=== PATIENT | female | born 1935 | race Caucasian/White ===

== ENCOUNTER → 2016-09-22 | Outpatient (CLI) | payer MEDICARE, OTHER | LOC: RAD 15:14 | PROVIDERS: ATTEND Internal Medicine | DX: C34.11 Malignant neoplasm of upper lobe, right bronchus or lung (principal) | CPT/HCPCS: 71260; 74177; 82565 ==

== ENCOUNTER 2016-10-11 11:47 | Inpatient (IN) | payer MEDICARE, OTHER ==
[2016-10-11] MEDS ORDERED: IPRATROPIUM/ALBUTEROL 0.5-2.5 MG/3 ML AMPUL NEB ONE ×2 (11:52)
[2016-10-11 12:33] LABS: ABSOLUTE BASOPHILS # (AUTO) 0.1 10^3/uL (0.0-0.2); ABSOLUTE EOSINOPHILS # (AUTO) 0.2 10^3/uL (0.0-0.6); ABSOLUTE LYMPHOCYTES (AUTO) 1.4 10^3/uL (0.5-4.7); ABSOLUTE MONOCYTES (AUTO) 0.8 10^3/uL (0.1-1.4); ABSOLUTE NEUT (AUTO) 9.1 10^3/uL (1.7-8.2); BASOPHILS % (AUTO) 0.5 % (0-2); EOSINOPHILS % (AUTO) 1.7 % (0-6); HEMATOCRIT 30.9 % (36.0-47.0); HEMOGLOBIN 10.4 g/dL (12.0-15.5); HGB HCT DIFFERENCE 0.3; LYMPHOCYTES % (AUTO) 11.9 % (13-45); MEAN CORPUSCULAR HEMOGLOBIN 33.2 pg (27.0-33.4); MEAN CORPUSCULAR HGB CONC 33.5 g/dL (32.0-36.0); MEAN CORPUSCULAR VOLUME 99 fl (80-97); MONOCYTES % (AUTO) 6.8 % (3-13); RED BLOOD COUNT 3.12 10^6/uL (3.72-5.28); RED CELL DISTRIBUTION WIDTH 14.1 % (11.5-14.0); SEGMENTED NEUTROPHILS % (AUTO) 79.1 % (42-78); WHITE BLOOD COUNT 11.5 10^3/uL (4.0-10.5)
[2016-10-11 12:56] LABS: ALANINE AMINOTRANSFERASE 33 U/L (9-52); ALKALINE PHOSPHATASE 82 U/L (38-126); ANION GAP 14 (5-19); ASPARTATE AMINO TRANSFERASE 32 U/L (14-36); BILIRUBIN,TOTAL 0.7 mg/dL (0.2-1.3); BLOOD UREA NITROGEN 12 mg/dL (7-20); CALCIUM 9.7 mg/dL (8.4-10.2); CARBON DIOXIDE 23 mmol/L (22-30); CHLORIDE 103 mmol/L (98-107); CREATINE KINASE 159 U/L (30-135); CREATININE RESULT 0.65 mg/dL (0.52-1.25); GLUCOSE 120 mg/dL (75-110); POTASSIUM 4.2 mmol/L (3.6-5.0); SODIUM 140.4 mmol/L (137-145); TOTAL PROTEIN 7.1 g/dL (6.3-8.2)
[2016-10-11 13:03] LABS: VENOUS BLOOD BASE EXCESS -1.6 mmol/L; VENOUS BLOOD HCO3 22.5 mmol/L (20-32); VENOUS BLOOD PCO2 35.5 mmHg (35-63); VENOUS BLOOD PH 7.42 (7.30-7.42)
[2016-10-11 13:08] LABS: CREATINE KINASE MB 1.24 ng/mL (<4.55)
[2016-10-11 13:09] LABS: TROPONIN I < 0.012 ng/mL
--- NOTE | 2016-10-11 13:53 | ER Document Report ---
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 pt noted to be hypoxic, placed on oxygen . ems noted pt 98% on oxygen but breathing hard. pt given duo neb enroute. noted symptoms ongoing for 1 week, pt is a full code TRAVEL OUTSIDE OF THE [place] IN LAST 30 DAYS: No - HPI Onset: Last week Onset/Duration: Persistent, Worse Quality of pain: No pain Severity: Moderate Pain Level: Denies Associated symptoms: Shortness of breath Exacerbated by: Walking Relieved by: Denies Similar symptoms previously: No Recently seen / treated by doctor: No Past Medical History - Social History Smoking Status: Current Every Day Smoker Cigarette use (# per day): No Chew tobacco use (# tins/day): No Smoking Education Provided: No Family History: Reviewed & Not Pertinent - Immunizations Hx Diphtheria, Pertussis, Tetanus Vaccination: No Review of Systems - Review of Systems Notes: REVIEW OF SYSTEMS: CONSTITUTIONAL : Denies fever, chills, or sweats. Denies recent illness. EENT: Denies eye, ear, throat, or mouth pain or symptoms. Denies nasal or sinus congestion or discharge. Denies throat, tongue, or mouth swelling or difficulty swallowing. CARDIOVASCULAR: Denies chest pain. Denies palpitations or racing or irregular heart beat. Denies ankle edema. RESPIRATORY: admits to sob , difficulty breathing , wheezing GASTROINTESTINAL: Denies abdominal pain or distention. Denies nausea, vomiting , or diarrhea. Denies blood in vomitus, stools, or per rectum. Denies black, tarry stools. Denies constipation. GENITOURINARY: Denies difficulty urinating, painful urination, burning, frequency, blood in urine, or discharge. FEMALE GENITOURINARY: Denies vaginal bleeding, heavy or abnormal periods, irregular periods. Denies vaginal discharge or odor. MUSCULOSKELETAL: Denies back or neck pain or stiffness. Denies joint pain or swelling. SKIN: Denies rash, lesions or sores. HEMATOLOGIC : Denies easy bruising or bleeding. LYMPHATIC: Denies swollen, enlarged glands. NEUROLOGICAL: Denies confusion or altered mental status. Denies passing out or loss of consciousness. Denies dizziness or lightheadedness. Denies headache. Denies weakness or paralysis or loss of use of either side. Denies problems with gait or speech. Denies sensory loss, numbness, or tingling. Denies seizures. PSYCHIATRIC: Denies anxiety or stress. Denies depression, suicidal ideation, or homicidal ideation. ALL OTHER SYSTEMS REVIEWED AND NEGATIVE. Dictation was performed using [employer] voice recognition software PHYSICAL EXAMINATION: GENERAL: Well-appearing, well-nourished and in no acute distress. HEAD: Atraumatic, normocephalic. EYES: Pupils equal round and reactive to light, extraocular movements intact, conjunctiva are normal. ENT: Nares patent, oropharynx clear without exudates. Moist mucous membranes. NECK: Normal range of motion, supple without lymphadenopathy LUNGS: Patient noted to have significant respiratory distress, immediately placed on BiPAP HEART: Regular rate and rhythm without murmurs ABDOMEN: Soft, nontender, nondistended abdomen. No guarding, no rebound. No masses appreciated. Female : deferred Musculoskeletal: Normal range of motion, no pitting or edema. No cyanosis. NEUROLOGICAL: Cranial nerves grossly intact. Normal speech, normal gait. Normal sensory, motor exams PSYCH: Normal mood, normal affect. SKIN: Warm, Dry, normal turgor, no rashes or lesions noted. Physical Exam - Vital signs Vitals: Resp Pulse Ox 30 H 100 10/11/16 12:00 10/11/16 12:00 Course - Re-evaluation Re-evalutation: 10/11/16 14:35 Patient has been doing well on BiPAP, she is very poor prognosis, unfortunately they have made her a full code which I think is a poor a decision at this time Patient will be admitted to hospitalist service for further evaluation care - Vital Signs Vital signs: Temp Pulse Resp BP Pulse Ox 98.4 F 103 H 20 105/73 99 10/11/16 14:05 10/11/16 14:05 10/11/16 14:05 10/11/16 14:05 10/11/16 14:05 - Laboratory Result Diagrams: 10/11/16 12:10 10/11/16 12:10 Laboratory results interpreted by me: 10/11/16 10/11/16 12:10 12:10 WBC 11.5 H RBC 3.12 L Hgb 10.4 L Hct 30.9 L MCV 99 H RDW 14.1 H Seg Neutrophils % 79.1 H Lymphocytes % 11.9 L Absolute Neutrophils 9.1 H Glucose 120 H Creatine Kinase 159 H - Diagnostic Test Radiology reviewed: Image reviewed, Reports reviewed Critical Care Note - Critical Care Note Total time excluding time spent on procedures (mins): 31 Comments: 31 Discharge - Discharge Clinical Impression: Non-small cell carcinoma of lung, stage 4 Qualifiers: Laterality: unspecified laterality Qualified Code(s): C34.90 - Malignant neoplasm of unspecified part of unspecified bronchus or lung COPD (chronic obstructive pulmonary disease) Qualifiers: COPD type: unspecified COPD Qualified Code(s): J44.9 - Chronic obstructive pulmonary disease, unspecified Condition: Serious Disposition: ADMITTED INPATIENT Admitting Provider: Hospitalist Unit Admitted: [facility]
[2016-10-11] MEDS ORDERED: NORMAL SALINE 1000 ML 1,000 ML IV ONE (15:30)
[2016-10-11] MEDS ORDERED: ONDANSETRON HCL INJ/PF 4 MG/2 ML SDV IV PRN (16:37)
[2016-10-11] MEDS ORDERED: NORMAL SALINE 1000 ML 1,000 ML IV PRN (16:37)
--- NOTE | 2016-10-11 16:52 | PDOC H&P ---
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 pt noted to be hypoxic, placed on oxygen . ems noted pt 98% on oxygen but breathing hard. pt given duo neb enroute. noted symptoms ongoing for 1 week, pt is a full code Upon evaluation in the ED patient was found to be hypoxemic on BiPAP support She did have wheezes bilaterally Chest x-ray did not show any infiltrate She was subsequently admitted with a diagnosis of acute on chronic respiratory failure, stage IV lung CA, and COPD exacerbation Patient's CODE STATUS is full code Past Medical History Pulmonary Medical History: Reports: Chronic Obstructive Pulmonary Disease (COPD) , Other - CA of the lung stage IV EENT Medical History: Reports: None Neurological Medical History: Reports: None Endocrine Medical History: Reports: None Malignancy Medical History: Reports: Lung Cancer GI Medical History: Reports: None Skin Medical History: Reports: None Psychiatric Medical History: Reports: None Infectious Medical History: Reports: None Past Surgical History Past Surgical History: Reports: None Social History Information Source: Relative - Daughter. Smoking Status: Former Smoker - Quit at age 63 Frequency of Alcohol Use: None Hx Recreational Drug Use: No - Advance Directive Resuscitation Status: Full Code Surrogate healthcare decision maker:: HER SON DAPHNEY MCLEAN Family History Family History: Reviewed & Not Pertinent Parental Family History Reviewed: Yes - dementia Children Family History Reviewed: Yes Sibling(s) Family History Reviewed.: Yes Medication/Allergy Home Medications: Benzonatate [Tessalon Perles 100 mg Capsule] 100 mg PO Q8HP PRN 10/11/16 Ipratropium/Albuterol Sulfate [Duoneb 3 ml Ampul] 3 ml NEB RTQ8 10/11/16 Lorazepam [Ativan 0.5 mg Tablet] 0.5 mg PO Q12HP PRN 10/11/16 Megestrol Acetate 80 mg PO BID 10/11/16 Omeprazole 40 mg PO DAILY 10/11/16 Oxycodone HCl [Oxy-Ir 5 mg Tablet] 5 mg PO Q8HP PRN 10/11/16 Primidone [Mysoline 250 mg Tablet] 250 mg PO TID 10/11/16 Promethazine HCl [Phenergan 25 mg Tablet] 25 mg PO Q6HP PRN 10/11/16 Simvastatin [Zocor 40 mg Tablet] 40 mg PO DAILY 10/11/16 Allergies/Adverse Reactions: No Known Allergies Allergy (Unverified 10/11/16 15:57) Review of Systems ROS unobtainable: Other - On BiPAP support Patient cannot appropriately answer questions Physical Exam Vital Signs: Temp Pulse Resp BP Pulse Ox 98.7 F 103 H 16 112/82 100 10/11/16 15:00 10/11/16 14:05 10/11/16 15:01 10/11/16 15:00 10/11/16 15:01 Intake & Output 10/10/16 10/11/16 10/12/16 00:59 00:59 00:59 Weight 133.356 kg General appearance: PRESENT: mild distress, thin Head exam: PRESENT: atraumatic, normocephalic Eye exam: PRESENT: conjunctiva pink, EOMI, PERRLA. ABSENT: scleral icterus Ear exam: PRESENT: normal external ear exam Neck exam: ABSENT: carotid bruit, JVD, lymphadenopathy, thyromegaly Respiratory exam: PRESENT: clear to auscultation marcial, decreased breath sounds, wheezes - Few bilaterally. ABSENT: rales, rhonchi Cardiovascular exam: PRESENT: RRR. ABSENT: diastolic murmur, rubs, systolic murmur GI/Abdominal exam: PRESENT: normal bowel sounds, soft. ABSENT: distended, guarding, mass, organolmegaly, rebound, tenderness Extremities exam: PRESENT: full ROM. ABSENT: calf tenderness, clubbing, pedal edema Neurological exam: PRESENT: awake, CN II-XII grossly intact Skin exam: PRESENT: dry, intact, warm. ABSENT: cyanosis, rash Results Laboratory Results: 10/11/16 12:10 10/11/16 12:10 10/11/16 10/11/16 10/11/16 12:10 12:10 12:45 WBC 11.5 H RBC 3.12 L Hgb 10.4 L Hct 30.9 L MCV 99 H MCH 33.2 MCHC 33.5 RDW 14.1 H Plt Count 325 Seg Neutrophils % 79.1 H Lymphocytes % 11.9 L Monocytes % 6.8 Eosinophils % 1.7 Basophils % 0.5 Absolute Neutrophils 9.1 H Absolute Lymphocytes 1.4 Absolute Monocytes 0.8 Absolute Eosinophils 0.2 Absolute Basophils 0.1 VBG pH 7.42 VBG pCO2 35.5 VBG HCO3 22.5 VBG Base Excess -1.6 Sodium 140.4 Potassium 4.2 Chloride 103 Carbon Dioxide 23 Anion Gap 14 BUN 12 Creatinine 0.65 Est GFR ( Amer) > 60 Est GFR (Non-Af Amer) > 60 Glucose 120 H Calcium 9.7 Total Bilirubin 0.7 AST 32 ALT 33 Alkaline Phosphatase 82 Total Protein 7.1 Albumin 4.0 10/11/16 10/11/16 12:10 12:10 Creatine Kinase 159 H CK-MB (CK-2) 1.24 Troponin I < 0.012 NT-Pro-B Natriuret Pep 370 EKG Comments: SINUS TACHYCARDIA [PLAA] . PROBABLE LEFT ATRIAL ABNORMALITY [AXR] . BORDERLINE RIGHT AXIS DEVIATION [AMI8] . CONSIDER ANTEROSEPTAL INFARCT Impressions: Chest X-Ray 10/11/16 11:52 IMPRESSION: Right hilar fullness consistent with known adenopathy. No other significant findings. Assessment & Plan - Diagnosis (1) Acute on chronic respiratory failure with hypoxemia Is this a current diagnosis for this admission?: YesPlan: We will treat the patient with nebs and supplemental oxygen steroids Levaquin A CTA of the chest be obtained to exclude pulmonary embolism (2) COPD exacerbation Is this a current diagnosis for this admission?: YesPlan: Treatment as above (3) Non-small cell carcinoma of lung, stage 4 Qualifiers: Laterality: unspecified laterality Qualified Code(s): C34.90 - Malignant neoplasm of unspecified part of unspecified bronchus or lung Is this a current diagnosis for this admission?: YesPlan: Last chemotherapy was a week ago Dr. Hinton will follow the patient in the hospital (4) Full code status Is this a current diagnosis for this admission?: Yes - Time Time Spent: 50 to 70 Minutes
--- NOTE | 2016-10-11 18:26 | EKG REPORT ---
SEVERITY:- ABNORMAL ECG - SINUS TACHYCARDIA PROBABLE LEFT ATRIAL ABNORMALITY BORDERLINE RIGHT AXIS DEVIATION CONSIDER ANTEROSEPTAL INFARCT : Confirmed by: Angel Ramos MD 11-Oct-2016 18:25:14
[2016-10-11] MEDS: LEVOFLOXACIN 500 MG/D5W RTU 500 MG/100 ML RTUPB IV SCH (18:58)
[2016-10-11] MEDS: METHYLPREDNISOLONE INJ 40 MG/1 ML SDV IV SCH (19:01)
[2016-10-11] MEDS: FAMOTIDINE INJ/PF 20 MG/2 ML SDV IV SCH (22:45)
[2016-10-12] MEDS: IPRATROPIUM/ALBUTEROL 0.5-2.5 MG/3 ML AMPUL NEB PRN ×4 (00:26→18:30)
[2016-10-12] MEDS: METHYLPREDNISOLONE INJ 40 MG/1 ML SDV IV SCH ×3 (02:44→19:00)
[2016-10-12] MEDS ORDERED: MORPHINE SULFATE 10 MG/ML INJ IV ONE (05:00)
[2016-10-12] MEDS ORDERED: NORMAL SALINE 1000 ML 1,000 ML IV ONE (05:00)
[2016-10-12 06:46] LABS: ABSOLUTE LYMPHOCYTES (AUTO) 0.7 10^3/uL (0.5-4.7); ABSOLUTE MONOCYTES (AUTO) 0.3 10^3/uL (0.1-1.4); ABSOLUTE NEUT (AUTO) 6.1 10^3/uL (1.7-8.2); BASOPHILS % (AUTO) 0.3 % (0-2); EOSINOPHILS % (AUTO) 0.1 % (0-6); HEMATOCRIT 26.9 % (36.0-47.0); HEMOGLOBIN 9.2 g/dL (12.0-15.5); HGB HCT DIFFERENCE 0.7; LYMPHOCYTES % (AUTO) 10.3 % (13-45); MEAN CORPUSCULAR HEMOGLOBIN 34.3 pg (27.0-33.4); MEAN CORPUSCULAR HGB CONC 34.3 g/dL (32.0-36.0); MEAN CORPUSCULAR VOLUME 100 fl (80-97); MONOCYTES % (AUTO) 3.7 % (3-13); RED BLOOD COUNT 2.69 10^6/uL (3.72-5.28); RED CELL DISTRIBUTION WIDTH 13.8 % (11.5-14.0); SEGMENTED NEUTROPHILS % (AUTO) 85.6 % (42-78); WHITE BLOOD COUNT 7.1 10^3/uL (4.0-10.5)
[2016-10-12] MEDS ORDERED: LORAZEPAM INJ 2 MG/1 ML VIAL ONE (06:53)
[2016-10-12 07:15] LABS: ALANINE AMINOTRANSFERASE 32 U/L (9-52); ALBUMIN 3.3 g/dL (3.5-5.0); ALKALINE PHOSPHATASE 68 U/L (38-126); ANION GAP 15 (5-19); ASPARTATE AMINO TRANSFERASE 31 U/L (14-36); BILIRUBIN,TOTAL 0.3 mg/dL (0.2-1.3); BLOOD UREA NITROGEN 10 mg/dL (7-20); CALCIUM 8.6 mg/dL (8.4-10.2); CARBON DIOXIDE 19 mmol/L (22-30); CHLORIDE 107 mmol/L (98-107); CREATININE RESULT 0.62 mg/dL (0.52-1.25); GLUCOSE 119 mg/dL (75-110); POTASSIUM 4.3 mmol/L (3.6-5.0); SODIUM 140.8 mmol/L (137-145); TOTAL PROTEIN 6.2 g/dL (6.3-8.2)
--- NOTE | 2016-10-12 08:25 | PDOC PROGRESS REPORT ---
Subjective Progress Note for:: 10/12/16 Subjective:: Patient was extremely agitated this morning and anxious and had to be sedated with Ativan He was also very confused when evaluated she is resting comfortably lethargic She is oxygenating adequately on nasal cannula and appears in no respiratory distress Physical Exam Vital Signs: Temp Pulse Resp BP Pulse Ox 98.7 F 103 H 25 H 120/98 H 100 10/11/16 15:00 10/11/16 14:05 10/12/16 05:00 10/12/16 04:56 10/12/16 05:00 General appearance: PRESENT: no acute distress, other - Lethargic arousable Head exam: PRESENT: atraumatic, normocephalic Eye exam: PRESENT: conjunctiva pink, EOMI, PERRLA. ABSENT: scleral icterus Neck exam: ABSENT: carotid bruit, JVD, lymphadenopathy, thyromegaly Respiratory exam: PRESENT: decreased breath sounds, wheezes - Occasional bilaterally Cardiovascular exam: PRESENT: RRR. ABSENT: diastolic murmur, rubs, systolic murmur GI/Abdominal exam: PRESENT: normal bowel sounds, soft. ABSENT: distended, guarding, mass, organolmegaly, rebound, tenderness Neurological exam: PRESENT: other - Lethargic arousable Skin exam: PRESENT: dry, intact, warm. ABSENT: cyanosis, rash Results Laboratory Results: 10/12/16 06:35 10/12/16 06:35 10/12/16 10/12/16 10/12/16 06:35 06:35 06:35 WBC 7.1 RBC 2.69 L Hgb 9.2 L Hct 26.9 L MCV 100 H MCH 34.3 H MCHC 34.3 RDW 13.8 Plt Count 297 Seg Neutrophils % 85.6 H Lymphocytes % 10.3 L Monocytes % 3.7 Eosinophils % 0.1 Basophils % 0.3 Absolute Neutrophils 6.1 Absolute Lymphocytes 0.7 Absolute Monocytes 0.3 Absolute Eosinophils 0.0 Absolute Basophils 0.0 Sodium 140.8 Potassium 4.3 Chloride 107 Carbon Dioxide 19 L Anion Gap 15 BUN 10 Creatinine 0.62 Est GFR ( Amer) > 60 Est GFR (Non-Af Amer) > 60 Glucose 119 H Calcium 8.6 Total Bilirubin 0.3 AST 31 ALT 32 Alkaline Phosphatase 68 Total Protein 6.2 L Albumin 3.3 L TSH 1.20 03/01/17 06:35 NT-Pro-B Natriuret Pep 626 H EKG Comments: SINUS TACHYCARDIA [PLAA] . PROBABLE LEFT ATRIAL ABNORMALITY [AXR] . BORDERLINE RIGHT AXIS DEVIATION [AMI8] . CONSIDER ANTEROSEPTAL INFARCT Impressions: Chest X-Ray 10/11/16 11:52 IMPRESSION: Right hilar fullness consistent with known adenopathy. No other significant findings. Chest/Abdomen CTA 10/11/16 16:32 IMPRESSION: NO PULMONARY EMBOLI IDENTIFIED. INTERVAL PROGRESSION OF KNOWN METASTATIC SMALL CELL LUNG CANCER WITH NEW WHEN ENLARGING MEDIASTINAL/ HILAR LYMPHADENOPATHY DETAILED ABOVE. Assessment & Plan - Diagnosis (1) Acute on chronic respiratory failure with hypoxemia Is this a current diagnosis for this admission?: Yes (2) COPD exacerbation Is this a current diagnosis for this admission?: Yes (3) Non-small cell carcinoma of lung, stage 4 Qualifiers: Laterality: unspecified laterality Qualified Code(s): C34.90 - Malignant neoplasm of unspecified part of unspecified bronchus or lung Is this a current diagnosis for this admission?: Yes (4) Full code status Is this a current diagnosis for this admission?: Yes - Time Time Spent with patient: CTA of the chest showed progression of metastatic small cell lung CA with new hilar mediastinal lymphadenopathies There were no pulmonary emboli No pulmonary infiltrate was described Patient increasing shortness of breath is likely related to anxiety and COPD acute exacerbation We will continue the present management She may benefit initiate from intermittent Roxanol by mouth for sedation and anxiety At this time patient may be a candidate for palliative care ; we will discuss the case with Dr. Hinton Time Spent with patient: 25-34 minutes
--- NOTE | 2016-10-12 09:11 | PDOC CONSULTATION ---
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 Now on o2 NC 4L o2 sat 94%. Spoke extensively with son this am about DNR and he agreed, spent >70min in discussion today. CT chest w/ progression of disease. Past Medical History Pulmonary Medical History: Reports: Chronic Obstructive Pulmonary Disease (COPD) , Other - CA of the lung stage IV EENT Medical History: Reports: None Neurological Medical History: Reports: None Endocrine Medical History: Reports: None Malignancy Medical History: Reports: Lung Cancer GI Medical History: Reports: None Skin Medical History: Reports: None Psychiatric Medical History: Reports: None Infectious Medical History: Reports: None Past Surgical History Past Surgical History: Reports: None, Other - Bx lung Social History Smoking Status: Former Smoker - Quit at age 63 Frequency of Alcohol Use: None Hx Recreational Drug Use: No - Advance Directive Resuscitation Status: Full Code Family History Family History: Reviewed & Not Pertinent Parental Family History Reviewed: Yes Children Family History Reviewed: Yes Sibling(s) Family History Reviewed.: Yes Medication/Allergy Home Medications: Benzonatate [Tessalon Perles 100 mg Capsule] 100 mg PO Q8HP PRN 10/11/16 Ipratropium/Albuterol Sulfate [Duoneb 3 ml Ampul] 3 ml NEB RTQ8 10/11/16 Lorazepam [Ativan 0.5 mg Tablet] 0.5 mg PO Q12HP PRN 10/11/16 Megestrol Acetate 80 mg PO BID 10/11/16 Omeprazole 40 mg PO DAILY 10/11/16 Oxycodone HCl [Oxy-Ir 5 mg Tablet] 5 mg PO Q8HP PRN 10/11/16 Primidone [Mysoline 250 mg Tablet] 250 mg PO TID 10/11/16 Promethazine HCl [Phenergan 25 mg Tablet] 25 mg PO Q6HP PRN 10/11/16 Simvastatin [Zocor 40 mg Tablet] 40 mg PO DAILY 10/11/16 Allergies/Adverse Reactions: No Known Allergies Allergy (Unverified 10/11/16 15:57) Review of Systems ROS unobtainable: Due to mental status Physical Exam Vital Signs: Temp Pulse Resp BP Pulse Ox 98.7 F 103 H 25 H 120/98 H 100 10/11/16 15:00 10/11/16 14:05 10/12/16 05:00 10/12/16 04:56 10/12/16 05:00 General appearance: PRESENT: no acute distress, well-developed, well-nourished Head exam: PRESENT: atraumatic, normocephalic Eye exam: PRESENT: conjunctiva pink, EOMI, PERRLA. ABSENT: scleral icterus Ear exam: PRESENT: normal external ear exam Mouth exam: PRESENT: moist, tongue midline Neck exam: ABSENT: carotid bruit, JVD, lymphadenopathy, thyromegaly Respiratory exam: PRESENT: clear to auscultation marcial. ABSENT: rales, rhonchi, wheezes Cardiovascular exam: PRESENT: RRR. ABSENT: diastolic murmur, rubs, systolic murmur Pulses: PRESENT: normal dorsalis pedis pul Vascular exam: PRESENT: normal capillary refill GI/Abdominal exam: PRESENT: normal bowel sounds, soft. ABSENT: distended, guarding, mass, organolmegaly, rebound, tenderness Rectal exam: PRESENT: deferred Extremities exam: PRESENT: full ROM. ABSENT: calf tenderness, clubbing, pedal edema Neurological exam: PRESENT: alert, awake, oriented to person, oriented to place , oriented to time, oriented to situation, CN II-XII grossly intact. ABSENT: motor sensory deficit Psychiatric exam: PRESENT: appropriate affect, normal mood. ABSENT: homicidal ideation, suicidal ideation Skin exam: PRESENT: dry, intact, warm. ABSENT: cyanosis, rash Results Laboratory Results: 10/12/16 06:35 10/12/16 06:35 10/12/16 10/12/16 10/12/16 06:35 06:35 06:35 WBC 7.1 RBC 2.69 L Hgb 9.2 L Hct 26.9 L MCV 100 H MCH 34.3 H MCHC 34.3 RDW 13.8 Plt Count 297 Seg Neutrophils % 85.6 H Lymphocytes % 10.3 L Monocytes % 3.7 Eosinophils % 0.1 Basophils % 0.3 Absolute Neutrophils 6.1 Absolute Lymphocytes 0.7 Absolute Monocytes 0.3 Absolute Eosinophils 0.0 Absolute Basophils 0.0 Sodium 140.8 Potassium 4.3 Chloride 107 Carbon Dioxide 19 L Anion Gap 15 BUN 10 Creatinine 0.62 Est GFR ( Amer) > 60 Est GFR (Non-Af Amer) > 60 Glucose 119 H Calcium 8.6 Total Bilirubin 0.3 AST 31 ALT 32 Alkaline Phosphatase 68 Total Protein 6.2 L Albumin 3.3 L TSH 1.20 10/12/16 06:35 NT-Pro-B Natriuret Pep 626 H Impressions: Chest X-Ray 10/11/16 11:52 IMPRESSION: Right hilar fullness consistent with known adenopathy. No other significant findings. Chest/Abdomen CTA 10/11/16 16:32 IMPRESSION: NO PULMONARY EMBOLI IDENTIFIED. INTERVAL PROGRESSION OF KNOWN METASTATIC SMALL CELL LUNG CANCER WITH NEW WHEN ENLARGING MEDIASTINAL/ HILAR LYMPHADENOPATHY DETAILED ABOVE. Assessment & Plan - Diagnosis (1) Small cell carcinoma of left lung Is this a current diagnosis for this admission?: YesPlan: Progressive, don't believe pt would benefit from further chemo/rx, plan hospice care, DNR ordered today. Hospice will meet with pt today. - Time Time Spent: Greater than 70 Minutes Critical Time spent with patient: 25-34 minutes Within: within 48 hours - Inpatient Certification Based on my medical assessment, after consideration of the patient's comorbidities, presenting symptoms, or acuity I expect that the services needed warrant INPATIENT care.: Yes I certify that my determination is in accordance with my understanding of Medicare's requirements for reasonable and necessary INPATIENT services [42 CFR 412.3e].: Yes Medical Necessity: Need For Continuous Telemetry Monitoring
[2016-10-12] MEDS: ENOXAPARIN SODIUM INJ 40 MG/0.4 ML DISP.SYRIN SUBCUT SCH (09:25)
[2016-10-12] MEDS: FAMOTIDINE INJ/PF 20 MG/2 ML SDV IV SCH (09:25)
[2016-10-12] MEDS: RISPERIDONE 0.25 MG TABLET PO SCH ×2 (10:00→20:15)
[2016-10-12] MEDS ORDERED: NORMAL SALINE 1000 ML 500 ML IV ONE (16:20)
[2016-10-12] MEDS ORDERED: NORMAL SALINE 1000 ML 250 ML IV ONE (16:20)
[2016-10-12] MEDS ORDERED: NORMAL SALINE 500 ML IV ONE (16:30)
[2016-10-12] MEDS ORDERED: NORMAL SALINE 250 ML IV ONE (16:45)
[2016-10-12] MEDS ORDERED: INFLUENZA ADLT QUAD (36MOS+) 2016-17 VAC 0.5 ML SYR IM PRN (17:54)
[2016-10-12] MEDS: LEVOFLOXACIN 500 MG/D5W RTU 500 MG/100 ML RTUPB IV SCH (19:00)
[2016-10-12] MEDS ORDERED: LEVOFLOXACIN 500 MG TABLET PO ONE (19:30)
[2016-10-12] MEDS: BUDESONIDE NEB 0.5 MG/2 ML AMPUL NEB SCH (20:11)
[2016-10-12] MEDS ORDERED: HALOPERIDOL LACTATE INJ 5 MG/1 ML VIAL ONE (20:49)
[2016-10-12] MEDS ORDERED: LORAZEPAM INJ 2 MG/1 ML VIAL IM ONE (21:15)
[2016-10-12] MEDS ORDERED: HALOPERIDOL LACTATE INJ 5 MG/1 ML VIAL IV ONE (21:15)
[2016-10-13] MEDS: IPRATROPIUM/ALBUTEROL 0.5-2.5 MG/3 ML AMPUL NEB PRN ×3 (03:14→15:36)
[2016-10-13] MEDS: HYDROMORPHONE HCL 2 MG TABLET PO PRN ×3 (05:00→20:53)
[2016-10-13] MEDS: BUDESONIDE NEB 0.5 MG/2 ML AMPUL NEB SCH ×2 (08:24→20:10)
--- NOTE | 2016-10-13 08:46 | PDOC PROGRESS REPORT ---
Subjective Progress Note for:: 10/13/16 Subjective:: Long discussion w/ son this am, pt was combative yesterday, confused, likely 2nd to dementia, discussed hospice at length, planning home hospice Physical Exam Vital Signs: Temp Pulse Resp BP Pulse Ox 97.6 F 101 H 18 124/92 H 99 10/13/16 08:14 10/13/16 08:25 10/13/16 08:25 10/13/16 08:14 10/13/16 08:25 Intake & Output 10/12/16 10/13/16 10/14/16 06:59 06:59 06:59 Intake Total 368 Balance 368 Weight 50.7 kg Results Laboratory Results: 10/12/16 06:35 10/12/16 06:35 10/12/16 06:35 NT-Pro-B Natriuret Pep 626 H Impressions: Chest X-Ray 10/11/16 11:52 IMPRESSION: Right hilar fullness consistent with known adenopathy. No other significant findings. Chest/Abdomen CTA 10/11/16 16:32 IMPRESSION: NO PULMONARY EMBOLI IDENTIFIED. INTERVAL PROGRESSION OF KNOWN METASTATIC SMALL CELL LUNG CANCER WITH NEW WHEN ENLARGING MEDIASTINAL/ HILAR LYMPHADENOPATHY DETAILED ABOVE. Assessment & Plan - Diagnosis (1) Small cell carcinoma of left lung Is this a current diagnosis for this admission?: YesPlan: after long discussion, >45min w. son, pt planned for home hospice thru [facility], will make arrangements and d/c soon when in place no longer candidate for further chemo/rx - Time Time Spent with patient: 35 or more minutes Critical Time spent with patient: 35 or more minutes Anticipated discharge: Home, Hospice Within: within 24 hours
[2016-10-13] MEDS ORDERED: PREDNISONE 20 MG TABLET PO SCH (10:00)
[2016-10-13] MEDS: ENOXAPARIN SODIUM INJ 40 MG/0.4 ML DISP.SYRIN SUBCUT SCH (10:08)
[2016-10-13] MEDS: RISPERIDONE 0.25 MG TABLET PO SCH ×2 (11:30→20:53)
--- NOTE | 2016-10-13 12:20 | PDOC PROGRESS REPORT ---
Subjective Progress Note for:: 10/13/16 Subjective:: Patient is a somewhat lethargic but resting comfortably Family decided to take patient home on hospice tomorrow; patient will be on palliative care We will continue essential medications and oxygen She appears quite comfortable at this time ;she is arousable in no respiratory distress Physical Exam Vital Signs: Temp Pulse Resp BP Pulse Ox 97.6 F 101 H 18 124/92 H 99 10/13/16 08:14 10/13/16 08:25 10/13/16 08:25 10/13/16 08:14 10/13/16 08:25 Intake & Output 10/12/16 10/13/16 10/14/16 00:59 00:59 00:59 Intake Total 368 Balance 368 Weight 50.9 kg 50.7 kg General appearance: PRESENT: no acute distress, thin Head exam: PRESENT: atraumatic, normocephalic Eye exam: PRESENT: conjunctiva pale Respiratory exam: PRESENT: decreased breath sounds, wheezes. ABSENT: accessory muscle use Cardiovascular exam: PRESENT: RRR. ABSENT: diastolic murmur, rubs, systolic murmur Pulses: PRESENT: normal dorsalis pedis pul GI/Abdominal exam: PRESENT: normal bowel sounds, soft. ABSENT: distended, guarding, mass, organolmegaly, rebound, tenderness Extremities exam: PRESENT: full ROM. ABSENT: calf tenderness, clubbing, pedal edema Neurological exam: PRESENT: altered Results Laboratory Results: 10/12/16 06:35 10/12/16 06:35 10/12/16 06:35 NT-Pro-B Natriuret Pep 626 H Impressions: Chest X-Ray 10/11/16 11:52 IMPRESSION: Right hilar fullness consistent with known adenopathy. No other significant findings. Chest/Abdomen CTA 10/11/16 16:32 IMPRESSION: NO PULMONARY EMBOLI IDENTIFIED. INTERVAL PROGRESSION OF KNOWN METASTATIC SMALL CELL LUNG CANCER WITH NEW WHEN ENLARGING MEDIASTINAL/ HILAR LYMPHADENOPATHY DETAILED ABOVE. Assessment & Plan - Diagnosis (1) Acute on chronic respiratory failure with hypoxemia Is this a current diagnosis for this admission?: Yes (2) COPD exacerbation Is this a current diagnosis for this admission?: Yes (3) Non-small cell carcinoma of lung, stage 4 Qualifiers: Laterality: unspecified laterality Qualified Code(s): C34.90 - Malignant neoplasm of unspecified part of unspecified bronchus or lung Is this a current diagnosis for this admission?: Yes (4) Do not resuscitate status Is this a current diagnosis for this admission?: Yes (5) Palliative care status Is this a current diagnosis for this admission?: Yes - Time Time Spent with patient: We will continue the present management Patient to be discharged in a.m. to hospice Transferred to medical unit if the bed is needed Time Spent with patient: 25-34 minutes
[2016-10-13] MEDS ORDERED: PREDNISONE 20 MG TABLET PO ONE (12:30)
--- NOTE | 2016-10-13 14:06 | Physician Advisory Note ---
Physician Advisor ProgressNote .: Pursuant to the plan for [facility], I have reviewed the medical record for this patient. Physician Advisor Statement: 1. Please state "comfort care" rather than the less specific term "palliative care" when aggressive measures are no longer desired and plan is for hospice. The term "palliative care" is no longer recognized to mean end of life care specifically. 2. "underweight with protein-calorie malnutrition [state mild, mod, or severe] with BMI 15.6, ____[?wt loss, ?appetite loss, ]" [if possible, give specifics on intake, wt loss, loss of SQ fat & muscle mass, diminished hand alteration manager strength, & clinical importance such as (A) nutritional assessment ordered, (B) modified diet or supplements ordered, (C) additional labs ordered, (D) prolonged wound healing time, (E) delayed infxn clearance] thanks! CK
[2016-10-13] MEDS: LEVOFLOXACIN 500 MG TABLET PO SCH (18:27)
[2016-10-13] MEDS ORDERED: MAGNESIUM SULFATE/D5W 1 GM/100 ML RTUPB IV ONE (19:30)
[2016-10-13] MEDS ORDERED: LORAZEPAM INJ 2 MG/1 ML VIAL ONE (23:36)
[2016-10-14] MEDS: HYDROMORPHONE HCL 2 MG TABLET PO PRN (00:14)
[2016-10-14] MEDS ORDERED: LORAZEPAM INJ 2 MG/1 ML VIAL IM ONE (01:15)
--- NOTE | 2016-10-14 08:06 | PDOC PROGRESS REPORT ---
Subjective Progress Note for:: 10/14/16 Subjective:: Feeling better, more lucid yesterday, was able to get back and forth to [facility] yesterday Physical Exam Vital Signs: Temp Pulse Resp BP Pulse Ox 97.6 F 113 H 20 109/58 L 95 10/14/16 04:00 10/14/16 04:00 10/14/16 04:00 10/14/16 04:00 10/14/16 04:00 Intake & Output 10/13/16 10/14/16 10/15/16 06:59 06:59 06:59 Intake Total 368 100 Output Total 0 Balance 368 100 Weight 50.7 kg 50 kg General appearance: PRESENT: no acute distress Head exam: PRESENT: atraumatic Respiratory exam: PRESENT: accessory muscle use Cardiovascular exam: PRESENT: RRR. ABSENT: diastolic murmur, rubs, systolic murmur GI/Abdominal exam: PRESENT: normal bowel sounds, soft. ABSENT: distended, guarding, mass, organolmegaly, rebound, tenderness Rectal exam: PRESENT: deferred Neurological exam: PRESENT: alert Results Laboratory Results: 10/12/16 06:35 10/12/16 06:35 10/12/16 06:35 NT-Pro-B Natriuret Pep 626 H Impressions: Chest X-Ray 10/11/16 11:52 IMPRESSION: Right hilar fullness consistent with known adenopathy. No other significant findings. Chest/Abdomen CTA 10/11/16 16:32 IMPRESSION: NO PULMONARY EMBOLI IDENTIFIED. INTERVAL PROGRESSION OF KNOWN METASTATIC SMALL CELL LUNG CANCER WITH NEW WHEN ENLARGING MEDIASTINAL/ HILAR LYMPHADENOPATHY DETAILED ABOVE. Assessment & Plan - Diagnosis (1) Small cell carcinoma of left lung Is this a current diagnosis for this admission?: YesPlan: Comfort care measures now, d/c to home hospice today, things in place for this - Time Time Spent with patient: 35 or more minutes Critical Time spent with patient: 35 or more minutes Anticipated discharge: Home, Hospice Within: within 24 hours
[2016-10-14] MEDS: BUDESONIDE NEB 0.5 MG/2 ML AMPUL NEB SCH ×2 (08:30→20:24)
[2016-10-14] MEDS: IPRATROPIUM/ALBUTEROL 0.5-2.5 MG/3 ML AMPUL NEB PRN ×2 (08:30→13:31)
[2016-10-14] MEDS: PREDNISONE 20 MG TABLET PO SCH (09:18)
[2016-10-14] MEDS: MORPHINE SULFATE 10 MG/5 ML ORAL SOLUTION UDCUP PO SCH ×4 (09:18→21:29)
[2016-10-14] MEDS: RISPERIDONE 0.25 MG TABLET PO SCH ×2 (09:18→21:29)
[2016-10-14] MEDS: LORAZEPAM 0.5 MG TABLET PO SCH ×4 (09:18→21:29)
--- NOTE | 2016-10-14 16:30 | PDOC PROGRESS REPORT ---
Subjective Progress Note for:: 10/14/16 Subjective:: was extremely distressed yesterday with severe SOB , anxiety ; needed bipap support kept patient for medical management and sedation She is a lot more comfortable with scheduled intermittent doses of ativan and morphine She is lethargic , arousable Physical Exam Vital Signs: Temp Pulse Resp BP Pulse Ox 97.9 F 100 22 H 115/61 95 10/14/16 15:27 10/14/16 15:27 10/14/16 15:27 10/14/16 15:27 10/14/16 15:27 Intake & Output 10/13/16 10/14/16 10/15/16 00:59 00:59 00:59 Intake Total 368 100 Output Total 0 Balance 368 100 Weight 50.9 kg 50.7 kg 50 kg General appearance: PRESENT: no acute distress, thin Head exam: PRESENT: atraumatic, normocephalic Eye exam: PRESENT: conjunctiva pale Neck exam: ABSENT: carotid bruit, JVD, lymphadenopathy, thyromegaly Respiratory exam: PRESENT: accessory muscle use, decreased breath sounds, tachypnea, wheezes Cardiovascular exam: PRESENT: tachycardia Pulses: PRESENT: normal dorsalis pedis pul GI/Abdominal exam: PRESENT: normal bowel sounds, soft. ABSENT: distended, guarding, mass, organolmegaly, rebound, tenderness Neurological exam: PRESENT: altered Results Laboratory Results: 10/12/16 06:35 10/12/16 06:35 10/12/16 06:35 NT-Pro-B Natriuret Pep 626 H Impressions: Chest X-Ray 10/11/16 11:52 IMPRESSION: Right hilar fullness consistent with known adenopathy. No other significant findings. Chest/Abdomen CTA 10/11/16 16:32 IMPRESSION: NO PULMONARY EMBOLI IDENTIFIED. INTERVAL PROGRESSION OF KNOWN METASTATIC SMALL CELL LUNG CANCER WITH NEW WHEN ENLARGING MEDIASTINAL/ HILAR LYMPHADENOPATHY DETAILED ABOVE. Assessment & Plan - Diagnosis (1) Acute on chronic respiratory failure with hypoxemia Is this a current diagnosis for this admission?: Yes (2) COPD exacerbation Is this a current diagnosis for this admission?: Yes (3) Non-small cell carcinoma of lung, stage 4 Qualifiers: Laterality: unspecified laterality Qualified Code(s): C34.90 - Malignant neoplasm of unspecified part of unspecified bronchus or lung Is this a current diagnosis for this admission?: Yes (4) Do not resuscitate status Is this a current diagnosis for this admission?: Yes (5) Palliative care status Is this a current diagnosis for this admission?: Yes - Time Time Spent with patient: will discharge in am with home hospice if comfortable Time Spent with patient: 25-34 minutes
[2016-10-14] MEDS: LEVOFLOXACIN 500 MG TABLET PO SCH (17:38)
[2016-10-15] MEDS: MORPHINE SULFATE 10 MG/5 ML ORAL SOLUTION UDCUP PO SCH ×3 (02:00→10:48)
[2016-10-15] MEDS: LORAZEPAM 0.5 MG TABLET PO SCH ×3 (02:00→10:50)
[2016-10-15] MEDS: IPRATROPIUM/ALBUTEROL 0.5-2.5 MG/3 ML AMPUL NEB PRN (08:48)
[2016-10-15] MEDS: BUDESONIDE NEB 0.5 MG/2 ML AMPUL NEB SCH (08:48)
[2016-10-15] MEDS: PREDNISONE 20 MG TABLET PO SCH (10:50)
[2016-10-15] MEDS: RISPERIDONE 0.25 MG TABLET PO SCH (10:50)
[2016-10-15 12:58] VITALS: BP 105/73
--- NOTE | 2016-10-15 17:15 | PDOC DISCHARGE SUMMARY ---
General - Admit/Disc Date/PCP Admission Date/Primary Care Provider: 10/11/16 16:37 JANET ONEIL STRUCTURER Oncology Discharge Date: 10/15/16 - Discharge Diagnosis (1) Acute on chronic respiratory failure with hypoxemia Is this a current diagnosis for this admission?: Yes (2) COPD exacerbation Is this a current diagnosis for this admission?: Yes (3) Non-small cell carcinoma of lung, stage 4 Is this a current diagnosis for this admission?: Yes (4) Do not resuscitate status Is this a current diagnosis for this admission?: Yes (5) Hospice care patient Is this a current diagnosis for this admission?: Yes (6) Encephalopathy Is this a current diagnosis for this admission?: Yes - Additional Information Resuscitation Status: Full Code Discharge Activity: Activity As Tolerated Home Medications: Ipratropium/Albuterol Sulfate [Duoneb 3 ml Ampul] 3 ml NEB RTQ8 10/11/16 Primidone [Mysoline 250 mg Tablet] 250 mg PO TID 10/11/16 Promethazine HCl [Phenergan 25 mg Tablet] 25 mg PO Q6HP PRN 10/11/16 Ipratropium/Albuterol Sulfate [Duoneb 3 ml Ampul] 3 ml NEB Q6HP PRN #30 vial.neb 10/15/16 Levofloxacin [Levaquin 500 mg Tablet] 500 mg PO QPM #5 tablet 10/15/16 Lorazepam [Ativan 0.5 mg Tablet] 0.5 mg PO Q4 #40 tablet 10/15/16 Morphine Sulfate [Morphine 10 mg/5 ml Oral Soln Udcup] 5 mg PO Q4 #30 ml Prednisone [Deltasone 20 mg Tablet] 40 mg PO DAILY #30 tablet 10/15/16 Risperidone [Risperdal 0.25 mg Tablet] 0.25 mg PO Q12 #60 tablet 10/15/16 History of Present Illness Patient complains of: Shortness of breath History of Present Illness: HECTOR PERSON is a 81 year old female history of stage IV small cell lung cancer with copd presents with complaints of shortness of breath from her oncologist office. pt noted to be hypoxic, placed on oxygen . ems noted pt 98% on oxygen but breathing hard. pt given duo neb enroute. noted symptoms ongoing for 1 week, pt is a full code Upon evaluation in the ED patient was found to be hypoxemic on BiPAP support She did have wheezes bilaterally Chest x-ray did not show any infiltrate She was subsequently admitted with a diagnosis of acute on chronic respiratory failure, stage IV lung CA, and COPD exacerbation Patient's CODE STATUS is full code Hospital Course Hospital Course: Patient was admitted with moderate severe respiratory distress, hypoxemia and wheezing Patient had a long history of stage IV small cell CA and COPD Initially she was a full CODE STATUS which was then switched to DO NOT RESUSCITATE and hospice care Patient's condition very quickly deteriorated during her admission She became extremely restless and dyspneic; she also became extremely confused; delirious; and at times needed to be sedated After meeting with Dr. Hinton family decided that hospice care was appropriate at this time; they would want to take home and care for her in this last stage of her life Patient became a lot more comfortable as small doses of morphine and Ativan were given [id number] She also was given Risperdal which helped with the confusion and the agitation Patient was transfered home with hospice Physical Exam Vital Signs: Temp Pulse Resp BP Pulse Ox 97.8 F 127 H 19 105/73 92 10/15/16 12:55 10/15/16 12:55 10/15/16 12:55 10/15/16 12:55 10/15/16 12:55 Intake & Output 10/14/16 10/15/16 10/16/16 00:59 00:59 00:59 Intake Total 100 590 357 Output Total 0 Balance 100 590 357 Weight 50.7 kg 50 kg 49.8 kg General appearance: PRESENT: mild distress Head exam: PRESENT: atraumatic, normocephalic Eye exam: PRESENT: conjunctiva pale Neck exam: ABSENT: carotid bruit, JVD, lymphadenopathy, thyromegaly Respiratory exam: PRESENT: accessory muscle use, decreased breath sounds, wheezes Cardiovascular exam: PRESENT: RRR, tachycardia Pulses: PRESENT: normal carotid pulses Neurological exam: PRESENT: awake, CN II-XII grossly intact Results Laboratory Results: 10/12/16 06:35 10/12/16 06:35 10/12/16 06:35 NT-Pro-B Natriuret Pep 626 H Labs- Entire Visit 10/11/16 10/11/16 10/11/16 12:10 12:10 12:10 WBC 11.5 H RBC 3.12 L Hgb 10.4 L Hct 30.9 L MCV 99 H MCH 33.2 MCHC 33.5 RDW 14.1 H Plt Count 325 Seg Neutrophils % 79.1 H Lymphocytes % 11.9 L Monocytes % 6.8 Eosinophils % 1.7 Basophils % 0.5 Absolute Neutrophils 9.1 H Absolute Lymphocytes 1.4 Absolute Monocytes 0.8 Absolute Eosinophils 0.2 Absolute Basophils 0.1 VBG pH VBG pCO2 VBG HCO3 VBG Base Excess Sodium 140.4 Potassium 4.2 Chloride 103 Carbon Dioxide 23 Anion Gap 14 BUN 12 Creatinine 0.65 Est GFR ( Amer) > 60 Est GFR (Non-Af Amer) > 60 Glucose 120 H POC Glucose Calcium 9.7 Total Bilirubin 0.7 Direct Bilirubin 0.0 AST 32 ALT 33 Alkaline Phosphatase 82 Creatine Kinase 159 H CK-MB (CK-2) 1.24 Troponin I < 0.012 NT-Pro-B Natriuret Pep 370 Total Protein 7.1 Albumin 4.0 TSH 10/11/16 10/12/16 10/12/16 12:45 06:35 06:35 WBC 7.1 RBC 2.69 L Hgb 9.2 L Hct 26.9 L MCV 100 H MCH 34.3 H MCHC 34.3 RDW 13.8 Plt Count 297 Seg Neutrophils % 85.6 H Lymphocytes % 10.3 L Monocytes % 3.7 Eosinophils % 0.1 Basophils % 0.3 Absolute Neutrophils 6.1 Absolute Lymphocytes 0.7 Absolute Monocytes 0.3 Absolute Eosinophils 0.0 Absolute Basophils 0.0 VBG pH 7.42 VBG pCO2 35.5 VBG HCO3 22.5 VBG Base Excess -1.6 Sodium 140.8 Potassium 4.3 Chloride 107 Carbon Dioxide 19 L Anion Gap 15 BUN 10 Creatinine 0.62 Est GFR ( Amer) > 60 Est GFR (Non-Af Amer) > 60 Glucose 119 H POC Glucose Calcium 8.6 Total Bilirubin 0.3 Direct Bilirubin 0.0 AST 31 ALT 32 Alkaline Phosphatase 68 Creatine Kinase CK-MB (CK-2) Troponin I NT-Pro-B Natriuret Pep Total Protein 6.2 L Albumin 3.3 L TSH 10/12/16 10/12/16 10/13/16 06:35 06:35 11:42 WBC RBC Hgb Hct MCV MCH MCHC RDW Plt Count Seg Neutrophils % Lymphocytes % Monocytes % Eosinophils % Basophils % Absolute Neutrophils Absolute Lymphocytes Absolute Monocytes Absolute Eosinophils Absolute Basophils VBG pH VBG pCO2 VBG HCO3 VBG Base Excess Sodium Potassium Chloride Carbon Dioxide Anion Gap BUN Creatinine Est GFR ( Amer) Est GFR (Non-Af Amer) Glucose POC Glucose 95 Calcium Total Bilirubin Direct Bilirubin AST ALT Alkaline Phosphatase Creatine Kinase CK-MB (CK-2) Troponin I NT-Pro-B Natriuret Pep 626 H Total Protein Albumin TSH 1.20 Impressions: Chest X-Ray 10/11/16 11:52 IMPRESSION: Right hilar fullness consistent with known adenopathy. No other significant findings. Chest/Abdomen CTA 10/11/16 16:32 IMPRESSION: NO PULMONARY EMBOLI IDENTIFIED. INTERVAL PROGRESSION OF KNOWN METASTATIC SMALL CELL LUNG CANCER WITH NEW WHEN ENLARGING MEDIASTINAL/ HILAR LYMPHADENOPATHY DETAILED ABOVE. Plan Discharge Plan: Discharged home with hospice care
== END 2016-10-15 13:40 | disposition hospice, home (50) | DRG 189 ==
LOC: ER 11:47 → EH 16:37 → UNDOADMIN 17:16 → EH 17:16 → 3W 10-12 15:55
PROVIDERS: ADMIT Emergency Medicine; ATTEND Emergency Medicine
PROC: 5A09357 Assistance with Respiratory Ventilation, Less than 24 Consecutive Hours, Continuous Positive Airway Pressure (ICD-10-PCS; principal; 2016-10-11)
PROC: 3E0F73Z Introduction of Anti-inflammatory into Respiratory Tract, Via Natural or Artificial Opening (ICD-10-PCS; 2016-10-12)
DX: J96.21 Acute and chronic respiratory failure with hypoxia (principal); G93.40 Encephalopathy, unspecified; C34.90 Malignant neoplasm of unspecified part of unspecified bronchus or lung; C79.51 Secondary malignant neoplasm of bone; J44.1 Chronic obstructive pulmonary disease with (acute) exacerbation; F41.9 Anxiety disorder, unspecified; F03.90 Unspecified dementia, unspecified severity, without behavioral disturbance, psychotic disturbance, mood disturbance, and anxiety; Z66 Do not resuscitate; Z87.891 Personal history of nicotine dependence; Z79.899 Other long term (current) drug therapy
CPT/HCPCS: 36415; 71010; 71275; 80053; 82550; 82553; 82803; 82962; 83880; 84443; 84484; 85025; 87040; 93005; 93010; 94640; 94660; 99291; J1630; J1650; J1956; J2060; J2270; J2405; J2920; J3490; J7030; J7512; J7620; S0028